=== PATIENT | female | born 1995 | race Caucasian/White ===

== ENCOUNTER 2021-04-16 00:06 | Emergency (ER) | payer SELFPAY ==
[~2021-04-16] VITALS: Ht 170.2 cm; Wt 72.6 kg
[2021-04-16 00:25] VITALS: BP 123/82
== END 2021-04-16 01:24 | disposition home or self-care (01) ==
LOC: ER 00:06
DX: F19.10 Other psychoactive substance abuse, uncomplicated (principal)